=== PATIENT | male | born 1945 | race Caucasian/White ===

== ENCOUNTER 2018-07-10 11:14 | Emergency (ER) | payer MEDICARE ==
[2018-07-10 12:10] VITALS: BP 125/58
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
== END 2018-07-10 13:48 | disposition home or self-care (01) ==
LOC: UCCORT 11:14
DX: M72.2 Plantar fascial fibromatosis (principal); M77.31 Calcaneal spur, right foot; E11.9 Type 2 diabetes mellitus without complications; E78.5 Hyperlipidemia, unspecified; I10 Essential (primary) hypertension
CPT/HCPCS: 99201; G0463